=== PATIENT | female | born 1995 | race Caucasian/White ===

== ENCOUNTER 2021-07-16 17:29 | Emergency (ER) | payer MEDICARE, OTHER ==
[~2021-07-16] VITALS: Ht 162.6 cm; Wt 58.5 kg
[2021-07-16 19:37] LABS: *BILIRUBIN,URIN NEGATIVE (NEGATIVE); *BLOOD, URINE NEGATIVE (NEGATIVE); *COLOR,URINE YELLOW (YELLOW); *KETONES,URINE NEGATIVE (NEGATIVE); LEUKOCYTE ESTERASE ,URINE NEGATIVE (NEGATIVE); NITRITE, URINE NEGATIVE (NEGATIVE); UGLUCOSE NEGATIVE (NEGATIVE)
[2021-07-16 19:38] LABS: *URINE HCG, QUAL NEGATIVE (NEGATIVE)
[2021-07-16 19:53] LABS: *CLARITY,URINE SLIGHTLY HAZY (CLEAR); BACTERIA,URINE NONE SEEN /HPF (NONE SEEN); RBC,URINE 0-3 /HPF (0-3); SQUAMOUS EPITHELIAL CELL,UR MODERATE /HPF (NONE SEEN)
[2021-07-16] MEDS ORDERED: ACET-2154 PO (20:03)
[2021-07-16] MEDS ORDERED: ALBU18HF2 INH (20:03)
[2021-07-16] MEDS ORDERED: BENZ200C53 PO (20:03)
[2021-07-16] MEDS ORDERED: PROM5SYR PO (20:03)
--- NOTE | 2021-07-16 20:18 | NUR ---
Patient discharged to home in stable condition. Written and verbal after care instructions given. Patient verbalizes understanding of instructions. Stressed follow up or return to ER for worsening s/s. Patient out of ER with steady gait, no acute signs of distress, VSS, all belongings taken, provided with copies of lab and xray results.
[2021-07-16 20:19] VITALS: BP 133/89
== END 2021-07-16 20:20 | disposition home or self-care (01) ==
LOC: ER 17:40
DX: J20.9 Acute bronchitis, unspecified (principal); Z96.41 Presence of insulin pump (external) (internal); Z87.440 Personal history of urinary (tract) infections; H91.90 Unspecified hearing loss, unspecified ear; E11.9 Type 2 diabetes mellitus without complications
CPT/HCPCS: 71046; 84703; A4663